=== PATIENT | male | born 1990 | race Caucasian/White ===

== ENCOUNTER 2018-09-14 18:05 | Emergency (ER) | payer OTHER ==
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
[2018-09-14 18:17] VITALS: BP 109/80; PULSE 88; TEMP 98.3; BMI 25.5
[2018-09-14] MEDS ORDERED: IBUPROFEN 400 MG TABLET (FP) PO ONE ×3 (18:23→18:33)
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
== END 2018-09-14 19:22 | disposition home or self-care (01) ==
LOC: FER 18:05
DX: Z04.1 Encounter for examination and observation following transport accident (principal); V43.52XA Car driver injured in collision with other type car in traffic accident, initial encounter; Y93.89 Activity, other specified; Y92.410 Unspecified street and highway as the place of occurrence of the external cause
CPT/HCPCS: 72070-TC-FY; 73610-TC-RT-FY; 99281-25